=== PATIENT | male | born 1955 | race Caucasian/White ===

== ENCOUNTER 2019-09-19 19:52 | Emergency (ER) | payer MEDICARE, MEDICAID ==
[~2019-09-19 19:52] MED LIST: ASPI-496 PO; CITA40TA5 PO; ENAL20TA PO; FOLI-17 PO; HYDR-826 PO; MULT-484 PO; SIMV20TA19 PO; SIMV5TAB PO; THIA100T67 PO; TRAZ50TA66 PO
--- NOTE | 2019-09-19 20:06 | NUR ---
CURRENT HISTORY OF DEPRESSION, HIGH CHOLESTEROL, HYPERTENSION
--- NOTE | 2019-09-19 20:38 | NUR ---
Safety precautions in place.
--- NOTE | 2019-09-19 20:42 | NUR ---
pt is verbally escalating. education given.
--- NOTE | 2019-09-19 22:03 | NUR ---
Patient into room, agreeable to changing into hospital gown, patient moving slowly and slurring words. When asked yes or no questions about suicidal intention patient says yes, but when asked about plan patient digresses, doesn't answer question clearly and instead gives an unclear recollection of recent psychiatric hospitalization.
[2019-09-19 23:12] VITALS: BP 110/60
--- NOTE | 2019-09-19 23:12 | NUR ---
Patient resting, one bag of belongings with pants (wallet remains in pocket) shirt and jacket place in bag. Bag into locker. Suitcase and shoes at side of locker.
== END 2019-09-20 | disposition home or self-care (01) ==
LOC: ED 22:56
DX: R45.851 Suicidal ideations (principal); F10.120 Alcohol abuse with intoxication, uncomplicated; I10 Essential (primary) hypertension; F17.200 Nicotine dependence, unspecified, uncomplicated; Y90.9 Presence of alcohol in blood, level not specified
CPT/HCPCS: 99283